=== PATIENT | male | born 1975 | race Two or more races ===

== ENCOUNTER 2019-10-26 07:34 | Outpatient (CLI) | payer OTHER ==
[2019-10-26] MEDS ORDERED: NONE PER PT (08:29)
[2019-10-31] MEDS ORDERED: SUGAMMADEX 200 MG/2 ML IVPush ONE ×3 (14:47)
== END 2019-10-26 23:59 | disposition home or self-care (01) ==
LOC: STAR 07:34
PROVIDERS: ATTEND Neurological Surgery
DX: Z11.59 Encounter for screening for other viral diseases (principal)
CPT/HCPCS: U0001-CS

== ENCOUNTER 2019-10-31 08:14 | Day surgery (SDC) | payer OTHER ==
[~2019-10-31] VITALS: Ht 172.7 cm; Wt 122.2 kg
[~2019-10-31 08:14] MED LIST: BACITRACIN 50,000 UNIT ONE; BUPIVACAINE/PF-EPI 0.5% 1:200K ONE; NONE PER PT; THROMBIN 20,000 UNIT VIAL TP ONE
[2019-10-31 09:23] VITALS: BP 142/89
[2019-10-31] MEDS ORDERED: ACETAMINOPHEN 500 MG TABLET PO STA (09:26)
[2019-10-31] MEDS ORDERED: GABAPENTIN 300 MG CAPSULE PO STA (09:26)
[2019-10-31] MEDS ORDERED: CHLORHEXIDINE 15 ML UDC MM ONE (09:30)
[2019-10-31] MEDS ORDERED: LACTATED RINGERS 1,000 ML IV SCH (09:48)
[2019-10-31] MEDS ORDERED: PROPOFOL 100 ML ONE (11:35)
[2019-10-31] MEDS ORDERED: MIDAZOLAM 1 MG/ML, 2ML ONE (11:35)
[2019-10-31] MEDS ORDERED: NEOSTIGMINE 1 MG/ML, 10ML ONE (11:41)
[2019-10-31] MEDS ORDERED: FENTANYL PF 250 MCG/5ML ONE (11:41)
[2019-10-31] MEDS ORDERED: CEFAZOLIN 1,000 MG ONE (11:41)
[2019-10-31] MEDS ORDERED: ROCURONIUM 10MG/ML,5ML ONE (11:41)
[2019-10-31] MEDS ORDERED: GLYCOPYRROLATE 0.2MG/1ML, 5ML ONE (11:41)
[2019-10-31] MEDS ORDERED: PROPOFOL 10 MG/ML, 20ML ONE (11:41)
[2019-10-31] MEDS ORDERED: HYDROmorphone 1 MG/ML, 1ML INJ IVPush PRN (14:00)
[2019-10-31] MEDS ORDERED: LABETALOL 5MG/ML, 20ML IV PRN (14:00)
[2019-10-31] MEDS ORDERED: FENTANYL PF 100 MCG/2ML IV PRN (14:00)
[2019-10-31] MEDS ORDERED: OXYcodone 5 MG/5 ML ORAL.SOL UDC PO PRN (14:00)
[2019-10-31] MEDS ORDERED: MEPERIDINE/PF 25MG/0.5ML IVPush PRN (14:00)
[2019-10-31] MEDS ORDERED: METHOCARBAMOL 1,000 MG in DEXTROSE 5% 100 ML IV PRN (14:00)
[2019-10-31] MEDS ORDERED: DIAZEPAM 5 MG/ML, 2ML IVPush PRN (14:00)
[2019-10-31] MEDS ORDERED: ONDANSETRON 2MG/ML, 2ML IVPush PRN (14:00)
[2019-10-31] MEDS ORDERED: hydrALAzine 20 MG/ML, 1ML IV PRN (14:00)
[2019-10-31] MEDS ORDERED: morphine SULFATE 10 MG/ML, 1ML IVPush PRN (14:00)
[2019-10-31] MEDS ORDERED: SUGAMMADEX 200 MG/2 ML IVPush ONE (14:03)
[2019-10-31] MEDS ORDERED: hydrALAzine 20 MG/ML, 1ML ONE (14:54)
[2019-10-31] MEDS ORDERED: LABETALOL 5MG/ML, 20ML ONE (14:54)
== END 2019-10-31 23:59 | disposition home or self-care (01) ==
LOC: SDC 08:14 → OUT 08:25 → ORIP 08:25 → UNDOADMIN 08:25 → EDSTATUS 14:30 → UNDODISIN 16:10 → OUT 23:59 → SDC 23:59
PROVIDERS: ATTEND Neurological Surgery
DX: M51.26 Other intervertebral disc displacement, lumbar region (principal); Z53.8 Procedure and treatment not carried out for other reasons; Z88.0 Allergy status to penicillin; Z79.899 Other long term (current) drug therapy
CPT/HCPCS: 63030; J0360; J0690; J2250; J2704; J2710; J3010; J7120; U0001-CS